=== PATIENT | female | born 1960 | race Caucasian/White ===

== ENCOUNTER 2016-10-16 11:26 | Observation (INO) | payer SELFPAY ==
[2016-10-16] MEDS ORDERED: Aspirin Low Dose CHEW TAB* 81 MG PO ONE (11:59)
[2016-10-16 12:22] LABS: Hematocrit 47 % (35-47); Hemoglobin 16.2 g/dl (12.0-16.0); Mean Corpuscular HGB Conc 34 g/dl (31-36); Mean Corpuscular Hemoglobin 34 pg (27-31); Mean Corpuscular Volume 100 fL (80-97); Mean Platelet Volume 10 um3 (7.4-10.4); Red Blood Count 4.71 10^6/ul (4.0-5.4); Red Cell Distribution Width 13 % (10.5-15); White Blood Count 4.6 10^3/ul (3.5-10.8)
[2016-10-16 12:26] LABS: Add Diff/Slide Review? Slide Review Added; Comments Flag Yes
--- NOTE | 2016-10-16 12:27 | RAD ---
HISTORY: Chest pain COMPARISONS: June 15, 2011 VIEWS:1: Single frontal portable view of the chest at 12:07 PM FINDINGS: LINES AND TUBES: None. CARDIOMEDIASTINAL SILHOUETTE: The cardiomediastinal silhouette is normal for portable technique. PLEURA: The costophrenic angles are sharp. No pleural abnormalities are noted. LUNG PARENCHYMA: There is a calcified granuloma of the right lower lobe. ABDOMEN: The upper abdomen is clear. There is no subphrenic gas. BONES AND SOFT TISSUES: No bone or soft tissue abnormalities are noted. IMPRESSION: NO ACTIVE CARDIOPULMONARY DISEASE.
[2016-10-16 12:42] LABS: Troponin I 0.01 ng/mL (<0.04)
[2016-10-16 12:53] LABS: Calcium 10.1 mg/dL (8.6-10.3); EGFR African American 149.1 (>60); Globulin 2.7 g/dL (2-4); Total Bilirubin 1.2 mg/dL (0.2-1.0); Total Protein 7.7 g/dL (6.4-8.9)
--- NOTE | 2016-10-16 13:11 | ED ---
Linnea Villanueva Edward, scribed for Donal Flores MD on 10/16/16 at 1151 . HPI Chest Pain - HPI Summary HPI Summary: 56y/o female BIBA s/p syncopal episode at 10:30 this morning while at work, c/o constant CP in the mid sternal region described as a heaviness and tightness, starting yesterday. The pain is aggravated with coughs and deep breaths. It is rated at a 3/10 in severity currently. Associated sx: mild SOB, chronic nonproductive cough, mild pain and swelling in legs. Denies fevers and chills. Pt is a smoker. PMHx HTN, previous CT around 5 years ago. SHx stent. Pt states this feels like a previous CT. Pt has a history of syncope. Pt's last stress test was 2 years ago. FHx unknown. - History of Current Complaint Chief Complaint: EDChestPainROMI Hx Obtained From: Patient Onset/Duration: Started Days Ago - Yesterday Timing: Constant Current Severity: Mild Pain Intensity: 3 Pain Scale Used: 0-10 Numeric Chest Pain Location: Mid Sternal Character: Heaviness, Tightness Aggravating Factor(s): Deep Breaths, Other: - Cough Associated Signs and Symptoms: Positive: Chest Pain, Shortness of Breath, Cough , Nonproductive Cough, Calf Pain/Swelling, Other: - Syncopal episode. Negative : Fever, Chills - Allergy/Home Medications Allergies/Adverse Reactions: Allergies Allergy/AdvReac Type Severity Reaction Status Date / Time No Known Allergies Allergy Verified 05/29/13 14:09 PMH/Surg Hx/FS Hx/Imm Hx Previously Healthy: No Endocrine/Hematology History: Denies: Hx Diabetes, Hx Thyroid Disease Cardiovascular History: Denies: Hx Hypertension Respiratory History: Denies: Hx Asthma, Hx Chronic Obstructive Pulmonary Disease (COPD) GI History: Denies: Hx Ulcer - Surgical History Surgery Procedure, Year, and Place: 2011 stent placement - cardiac Infectious Disease History: Yes Infectious Disease History: Denies: Hx Clostridium Difficile, Hx Hepatitis, Hx Human Immunodeficiency Virus (HIV), Hx of Known/Suspected MRSA, Hx Shingles, Hx Tuberculosis, Hx Known/ Suspected VRE, Hx Known/Suspected VRSA, History Other Infectious Disease, Traveled Outside the [place] in Last 30 Days - Family History Known Family History: Positive: Diabetes - Social History Alcohol Use: Occasionally Hx Substance Use: No Substance Use Type: Reports: None Amount Used/How Often: 1/2 PPD Length of Time of Smoking/Using Tobacco: 30+ years Have You Smoked in the Last Year: Yes Review of Systems Constitutional: Negative Eyes: Negative ENT: Negative Positive: Chest Pain Positive: Shortness Of Breath, Cough Gastrointestinal: Negative Genitourinary: Negative Musculoskeletal: Other - Calf pain/swelling Skin: Negative Positive: Syncope Psychological: Normal All Other Systems Reviewed And Are Negative: Yes Physical Exam Vital Signs On Initial Exam: Initial Vitals Temp Pulse Resp BP Pulse Ox 97.7 F 87 20 171/95 98 10/16/16 11:33 10/16/16 11:33 10/16/16 11:33 10/16/16 11:33 10/16/16 11:33 Diagnostics - Vital Signs Vital Signs Temp Pulse Resp BP Pulse Ox 10/16/16 11:33 97.7 F 87 20 171/95 98 - Laboratory Lab Results: Lab Results 10/16/16 10/16/16 10/16/16 Range/Units 11:43 11:43 11:43 WBC 4.6 (3.5-10.8) 10^3/ul RBC 4.71 (4.0-5.4) 10^6/ul Hgb 16.2 H (12.0-16.0) g/dl Hct 47 (35-47) % MCV 100 H (80-97) fL MCH 34 H (27-31) pg MCHC 34 (31-36) g/dl RDW 13 (10.5-15) % Plt Count 167 (150-450) 10^3/ul MPV 10 (7.4-10.4) um3 Neut % (Auto) 67.2 (38-83) % Lymph % (Auto) 25.4 (25-47) % [place] % (Auto) 6.1 (1-9) % Eos % (Auto) 0.4 (0-6) % Baso % (Auto) 0.9 (0-2) % Absolute Neuts (auto) 3.1 (1.5-7.7) 10^3/ul Absolute Lymphs (auto) 1.2 (1.0-4.8) 10^3/ul Absolute Monos (auto) 0.3 (0-0.8) 10^3/ul Absolute Eos (auto) 0 (0-0.6) 10^3/ul Absolute Basos (auto) 0 (0-0.2) 10^3/ul Absolute Nucleated RBC 0 10^3/ul Nucleated RBC % 0.1 INR (Anticoag Therapy) 0.82 L (0.89-1.11) APTT 31.4 (26.0-36.3) seconds D-Dimer, Quantitative 469 H (Less Than 230) ng/mL Sodium 130 L (133-145) mmol/L Potassium 4.0 (3.5-5.0) mmol/L Chloride 95 L (101-111) mmol/L Carbon Dioxide 26 (22-32) mmol/L Anion Gap 9 (2-11) mmol/L BUN 7 (6-24) mg/dL Creatinine 0.54 (0.51-0.95) mg/dL Est GFR ( Amer) 149.1 (>60) Est GFR (Non-Af Amer) 116.0 (>60) BUN/Creatinine Ratio 13.0 (8-20) Glucose 110 H (70-100) mg/dL Calcium 10.1 (8.6-10.3) mg/dL Magnesium 2.0 (1.9-2.7) mg/dL Total Bilirubin 1.20 H (0.2-1.0) mg/dL AST 87 H (13-39) U/L ALT 91 H (7-52) U/L Alkaline Phosphatase 49 (34-104) U/L Troponin I 0.01 (<0.04) ng/mL Total Protein 7.7 (6.4-8.9) g/dL Albumin 5.0 (3.2-5.2) g/dL Globulin 2.7 (2-4) g/dL Albumin/Globulin Ratio 1.9 (1-3) Result Diagrams: 10/16/16 11:43 10/16/16 11:43 Lab Statement: Any lab studies that have been ordered have been reviewed, and results considered in the medical decision making process. - Radiology CXR Xray Interpretation: No Acute Changes - NAD Radiology Interpretation Completed By: Radiologist - EKG 1 EKG Rhythm: Sinus Rhythm - @ 81 BPM. EKG Interpretation: 11:38 - NO STEMI Chest Pain Course/Dx - Course Course Of Treatment: 56 yr old female with prior history of CAD and stents with chest pain, syncope, and pleuritic component to CP. CTA ordered. Discussed with hospitalists for admission. - Diagnoses Provider Diagnoses: Chest pain, Syncope Discharge - Discharge Plan Condition: Good Disposition: ADMITTED TO [facility] documentation as recorded by the Linnea price Edward accurately reflects the service I personally performed and the decisions made by Sandra hanson Walter, MD.
[2016-10-16] MEDS ORDERED: Iohexol 350* (CONTRAST) 500 ML MDV IV ONE (13:18)
--- NOTE | 2016-10-16 14:12 | RAD ---
INDICATION: Chest pain. Short of breath. Evaluate for pulmonary embolus. COMPARISON: Chest x-ray 2016 TECHNIQUE: Axial source images were obtained from the thoracic inlet to the hemidiaphragms following administration of [address] angiographic technique was utilized. Coronal and sagittal reconstructed images were acquired. CHEST FINDINGS: Neck/thyroid: The visualized neck to include the thyroid appear normal. Chest wall: There are no acute abnormalities of the bony thorax or chest wall. There is no supraclavicular, infraclavicular, or axillary lymphadenopathy. Lungs : There is calcified granuloma in the right lung base There are no other pulmonary parenchymal masses. There are no infiltrates. The pulmonary interstitium appears normal. There are no endobronchial lesions. Cardiomediastinal structures: There is no CT evidence of acute pulmonary embolic disease. The heart is normal in size. There is no pericardial effusion. There is no evidence of aortic aneurysm or dissection. There is no mediastinal or hilar adenopathy. There is apparent mild, diffuse thickening of the esophagus. Consider upper endoscopy if this is a clinical consideration. Pleura : There are no pleural-based masses or effusions. Other: None. IMPRESSION: No CT evidence of acute pulmonary embolic disease. Possible mild mucosal thickening of the esophagus could be related to esophagitis (see above)
[2016-10-16] MEDS ORDERED: Acetaminophen TAB* 325 MG PO PRN (14:36)
[2016-10-16] MEDS ORDERED: Nitroglycerin TAB 0.4 MG* 0.4 MG TAB SL PRN (14:36)
[2016-10-16] MEDS ORDERED: Mouth Piece, Nicotine* 1 EACH CARTRIDGE INH PRN (14:38)
[2016-10-16] MEDS ORDERED: Nicotine Inhaler* 10 MG AMP INH PRN (14:38)
[2016-10-16] MEDS ORDERED: Morphine INJ* 2 MG/ML 1 ML SYRINGE IV PRN (14:39)
[2016-10-16] MEDS ORDERED: Heparin DRIP 25,000 UNITS(*) 25,000 UNITS/500 ML BAG IVPB SCH (14:45)
[2016-10-16] MEDS ORDERED: Heparin VIAL(*) 5000 UNITS/ML VIAL (FIVE THOUSAND) IV SCH (15:00)
--- NOTE | 2016-10-16 15:52 | ECHO ---
Patient: FESTUS CLAROS [facility] Rec#: [id number] : 1960 Date: 10/16/2016 Age: 56y Height: 152.4 cm / 60.0 in Weight: 40.82 kg / 90.0 lbs Sex: F BSA: 1.33 Room#: ED 15 Admit Date#: 10/16/2016 Type: Inpatient Referring: Sheryl Gaming MD Reading: Sidney Alcocer MD Instruction Librarian: Rhiannon CanRDCS,RDMS Transthoracic Echocardiogram Indication: CP, Syncope BP: 171/95 HR: 78 Rhythm: NSR Findings History: CAD, [place], PCI, HTN, smoker, syncope Technical Comments: The study quality is good. Completed 1530 Left Ventricle: The left ventricular chamber size is decreased. Mild to moderate concentric left ventricular hypertrophy is observed. There is a prominent septal knuckle. Global left ventricular wall motion and contractility are within normal limits. The left ventricle appears hyperdynamic. The estimated ejection fraction is greater than 65%. Abnormal left ventricular diastolic filling is observed, consistent with impaired relaxation. Left Atrium: The left atrial chamber size is normal. Right Ventricle: The right ventricle wall thickness is moderately increased. The right ventricular cavity size is normal. The right ventricular global systolic function is hyperdynamic. Right Atrium: The right atrial cavity size is normal. Aortic Valve: The aortic valve is trileaflet. The aortic valve leaflets are mildly thickened. There is no evidence of aortic regurgitation. There is no evidence of aortic stenosis. Mitral Valve: The mitral valve leaflets are mildly thickened. There is no evidence of mitral regurgitation. There is no evidence of mitral stenosis. Tricuspid Valve: The tricuspid valve leaflets are normal. There is trace tricuspid regurgitation. Unable to estimate the right ventricular systolic pressure. Pulmonic Valve: The pulmonic valve structure is not well visualized. Pericardium: There is no significant pericardial effusion. Aorta: The aortic root appears normal. There is no dilatation of the aortic arch. Pulmonary Artery: The main pulmonary artery is not well visualized. Venous: The inferior vena cava appears normal in size. There is a greater than 50% respiratory change in the inferior vena cava dimension. Summary: There are no significant changes when compared to the previous study done on 06/16/11 Conclusions Mild to moderate concentric left ventricular hypertrophy is observed. There is a prominent septal knuckle. Global left ventricular wall motion and contractility are within normal limits. The estimated ejection fraction is greater than 65%. The right ventricular global systolic function is hyperdynamic. There is no evidence of aortic stenosis. There is no evidence of mitral regurgitation. There is trace tricuspid regurgitation. Unable to estimate the right ventricular systolic pressure. There is no significant pericardial effusion. There are no significant changes when compared to the previous study done on 06/16/11 Measurements Name Value Normal Range RVIDd (AP) 2D 1.9 cm (0.9 - 2.6) RVDdMajor (2D) 2.2 cm (2.2 - 4.4) RAd ISD 4CH 3.9 cm (3.4 - 4.9) RA (A4C)W 3.7 cm (2.9 - 4.6) IVSd (2D) 1.5 cm (0.6 - 1) LVPWd (2D) 1.3 cm (0.6 - 1) LVIDd (2D) 3 cm (3.6 - 5.4) LVIDs (2D) 1.4 cm - LV FS (2D) 53 % (25 - 45) Aortic Annulus 2.1 cm (1.4 - 2.6) Ao root diameter (2D) 2.9 cm (2.1 - 3.5) Ascending Ao 2.2 cm (2.1 - 3.4) Aortic arch 2.2 cm (1.8 - 3.4) LA dimension (AP) 2D 2.6 cm (2.3 - 3.8) LAd ISD 4CH 4.9 cm (2.9 - 5.3) LA ISD 4CH W 3.9 cm (2.5 - 4.5) Name Value Normal Range LA ESV SP 4CH (A/L) 34.65 ml - LA ESV SP 2CH (A/L) 38.1 ml - LA ESV BP (A/L) 37.11 ml - LA ESV BP (A/L) index 28 ml/m2 - LA ESV SP 4CH (MOD) 33.01 ml - LA ESV SP 2CH (MOD) 36.45 ml - Name Value Normal Range MV E-wave Vmax 0.7 m/sec - MV deceleration time 198.5 msec - MV A-wave Vmax 1.1 m/sec - MV E:A ratio 0.6 ratio - P. vein S-wave Vmax 0.5 m/sec - P. vein D-wave Vmax 0.4 m/sec - P. vein S:D Vmax ratio 1.2 ratio - P. vein A-wave duration 90 msec - LV septal e' Vmax 0.05 m/sec - LV lateral e' Vmax 0.07 m/sec - LV E:e' septal ratio 13.5 ratio - LV E:e' lateral ratio 10 ratio - Name Value Normal Range AV Vmax 1.3 m/sec - AV VTI 25.7 cm - AV peak gradient 7 mmHg - AV mean gradient 4.2 mmHg - LVOT Vmax 1.2 m/sec - LVOT VTI 26.9 cm - LVOT peak gradient 6 mmHg - LVOT mean gradient 3.5 mmHg - JONA Vmax 0.7 m/sec - Name Value Normal Range RAP 8 mmHg - IVC diameter 1.1 cm - Name Value Normal Range PV Vmax 0.8 m/sec - PV peak gradient 2.6 mmHg -
--- NOTE | 2016-10-16 16:56 | HP ---
CC: Dr. Womack * HISTORY AND PHYSICAL: DATE OF ADMISSION: 10/16/16 TIME OF EVALUATION: 1:45 p.m. PRIMARY CARE PROVIDER: Dr. Womack. CHIEF COMPLAINT: "I passed out." HISTORY OF PRESENT ILLNESS: Ms. Bush is a 56-year-old lady with a past medical history of coronary artery disease, status post stent, tobacco abuse that presents to the emergency room with complaints of chest pain. The patient states she was in her usual state of health until yesterday morning when she started to have left-sided chest pain that she describes as a pressure , nonradiating, initially 3/10 in intensity, not associated with diaphoresis, shortness of breath, or palpitations. She could reproduce the pain with palpation of the left chest wall. 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 By the time she returned home, the pain was 5/10. She states that there are no alleviating or provoking factors for her pain. The pain did not stop, she took no medications, but she was able to sleep. This morning, she woke up, the pain was still present, she went to work. She states that she was feeling sick to her stomach while she was working and she went to tell her boss that she was feeling sick, the next thing she remembers is being on the floor and people helping her to get up. She states that she felt a little dizzy before passing out. The patient states she has stopped taking her medications for the past 6 months as she has no insurance and could not afford her medications any more. She denies any trauma. She states that she does not do any physical labor on her job, "I usually ask the young ones to do for me." There is no fever, chills , cough, shortness of breath, or other complaints. PAST MEDICAL HISTORY: 1. Coronary artery disease. The patient had a heart cath in March 2011 that showed 95% stenosis of the RCA and she had a drug-eluting stent placed. At that time, she was discharged home on aspirin, Plavix, beta-jennifer, statins. She returned in May 2011 with complaints of chest pain. At that time, she was also not taking her medications but in-stent stenosis was ruled out. 2. Tobacco abuse. MEDICATION LIST: None. ALLERGIES: No known drug allergies. FAMILY HISTORY: There is diabetes on the patient's mother side. SOCIAL HISTORY: The patient is a smoker since she was 15, a pack per day. She drinks 3 to 4 times a week. Last drink was 3 days ago, she had 4 beers. Surrogate decision maker is her daughter, Sara Seals, phone number is [phone]. REVIEW OF SYSTEMS: A 14-point review of systems was performed, and all the pertinent negative and positive findings are in the HPI. PHYSICAL EXAMINATION GENERAL: The patient is a pleasant lady that appears older than stated age, sitting up in ER stretcher, in no acute distress. VITAL SIGNS: Temperature 97.7, heart rate is 87, respiratory rate is 20, oxygen saturation is 98% on room air, blood pressure is 171/95. HEENT: Pupils are equal. Moist mucous membranes. CHEST: Breath sounds present bilaterally with no added sounds. She has pain on palpation of the lateral aspect of her left chest wall. CVS: Normal S1, S2. Regular rate and rhythm. ABDOMEN: Soft, nontender. Bowel sounds are present. EXTREMITIES: No edema. NEUROLOGIC: She is alert, oriented x3. Able to move all 4 extremities. LABORATORY AND IMAGING DATA: The patient had a CBC that showed a WBC of 4.6, hemoglobin of 16.2, hematocrit of 47, and platelets of 167. INR is 0.82. D- dimer was 469. Chemistry showed a sodium of 130, potassium 4.0, chloride of 95 , bicarb of 26, BUN of 7, creatinine of 0.54, and glucose of 110. Calcium of 10.1. Magnesium of 2. LFTs showed a total bilirubin of 1.2, AST of 87, ALT of 91. Chest x-ray showed no active cardiopulmonary disease. CTA of the chest showed no CT evidence of acute pulmonary embolic disease. Possible mild mucosal thickening of the esophagus that could be related to esophagitis. EKG showed sinus rhythm at 81 beats per minute. The patient has a Q wave in V1. She has very tall T waves in the anterior leads but no ST elevations or depressions. When compared to her prior EKG from 2012, the T waves are more pronounced now. ASSESSMENT AND PLAN: Ms. Bush is a 56-year-old lady with a past medical history of coronary artery disease, status post stent to the RCA, tobacco abuse , noncompliance that presents to the emergency room with complaints of chest pain and a syncopal episode today. 1. Chest pain, rule acute coronary syndrome. Although the patient's chest pain is reproducible with chest palpation, she does have a history of coronary artery disease and she has not been taking her medications for the past 6 months. I am especially concerned with her syncopal episode that could be associated with an arrhythmia. She would be admitted as an observation to telemetry floor. I am going to resume medications including aspirin, metoprolol, statin. For now, she is going to be on heparin drip and we are going to trend her troponins. If she is ruled out, the plan is for exercise Myoview stress test tomorrow. If she rules in, then we will get cardiology consultation. I am also going to check an echocardiogram to assess her left ventricle function. A school social worker consultation was requested to help the patient with insurance/ medication. 2. Elevated LFTs. Suspect this is likely secondary to alcohol intake. We will check hepatitis serology and a right upper quadrant ultrasound. The patient was advised to avoid alcoholic beverages. 3. Tobacco abuse. The patient was advised that she needs to quit. She states that she is aware, but it has been very difficult. She will receive nicotine supplementation while in the hospital. 4. DVT prophylaxis. The patient has a score of 2 on the DVT Prophylaxis Risk Assessment Guide and she was already started on a heparin drip. TIME SPENT: Approximately 60 minutes was spent with the patient's interview, medical records review, physical examination to complete this admission; more than half of this time was spent [id number] with the patient and coordination of care. [id number]/[facility] #: [id number] MAGALY
[2016-10-16] MEDS: Nicotine PATCH 21 MG/24 HR* PATCH TRANSDERM SCH (17:10)
[2016-10-16] MEDS: Metoprolol Succinate XL TAB* 25 MG PO SCH (17:10)
--- NOTE | 2016-10-16 17:41 | RAD ---
INDICATION: Elevated liver function tests. COMPARISON: There are no prior studies available for comparison. TECHNIQUE: Multiple real-time images of the right upper quadrant were obtained. FINDINGS: The gallbladder appear normal. No gallbladder wall thickening or pericholecystic fluid is present. No intra or extrahepatic ductal distention is present. The common bile duct measured 0.3 cm in diameter. The liver is normal in size and increased in echogenicity. No significant focal abnormality is seen. The pancreas is partially obscured by overlying bowel gas. The right kidney is normal in size without evidence for hydronephrosis. IMPRESSION: THE LIVER IS INCREASED IN ECHOGENICITY SUGGESTIVE OF FATTY INFILTRATION.
[2016-10-16] MEDS ORDERED: Atorvastatin* 40 MG TAB PO SCH (21:00)
[2016-10-16] MEDS ORDERED: Nicotine Patch Removal NOTE FOLLOW UP SCH (21:00)
[2016-10-17 03:48] VITALS: BP 144/83
[2016-10-17 05:02] LABS: BUN/Creatinine Ratio 22.4 (8-20); Calcium 9.6 mg/dL (8.6-10.3); EGFR African American 137.3 (>60); EGFR Non-African American 106.8 (>60); HDL Cholesterol 77.5 mg/dL; Potassium 3.9 mmol/L (3.5-5.0)
[2016-10-17 05:16] LABS: Add Diff/Slide Review? Slide Review Added; Comments Flag Yes; Hematocrit 44 % (35-47); Hemoglobin 14.8 g/dl (12.0-16.0); Mean Corpuscular HGB Conc 34 g/dl (31-36); Mean Corpuscular Hemoglobin 34 pg (27-31); Mean Corpuscular Volume 101 fL (80-97); Mean Platelet Volume 10 um3 (7.4-10.4); Red Blood Count 4.35 10^6/ul (4.0-5.4); Red Cell Distribution Width 13 % (10.5-15); White Blood Count 5.2 10^3/ul (3.5-10.8)
[2016-10-17] MEDS ORDERED: Aspirin EC Low Dose* 81 MG TAB.EC PO SCH (09:00)
--- NOTE | 2016-10-17 10:14 | RAD ---
Edited for charges. INDICATION: Chest pain. Tobacco use. Abnormal EKG. COMPARISON: No relevant prior exams available on the [facility] PACS for comparison. TECHNIQUE: 10.830 mCi of Tc-99m Myoview were administered IV. SPECT images of the heart were obtained. Later on the same day. Under the direction of Dr. Alcocer, an exercise stress test was performed. The patient achieved a peak heart rate of 123 bpm, 76 % of the age- predicted maximum. Heart rate noted to be blunted due to pharmacotherapy. Subsequently, the patient was given an IV injection of 25.100 mCi Tc-99m Myoview. SPECT images of the heart were obtained and a gated wall motion study was performed. FINDINGS: Gated wall motion images were obtained at stress and demonstrate wall motion to be within normal limits. The calculated left ventricular ejection fraction is 82 % at stress. Estimated LEFT ventricular end diastolic volume is 45 mL. TID 1.04. Based on review of the attenuation corrected and non corrected images the distribution of radiopharmaceutical within the myocardium on the stress and rest images is within normal limits. No fixed or reversible regions of hypoperfusion evident. IMPRESSION: 1. No evidence for stress induced myocardial ischemia or presence of an infarct. 2. Normal left ventricular wall motion and ejection fraction. ASSESSMENT: LOW RISK. Based on imaging criteria from ACC/AHA 2002 Guideline Update for the Management of Patients With Chronic Stable Angina Table 23. Noninvasive Risk Stratification. MTDD
[2016-10-17] MEDS: Metoprolol Succinate XL TAB* 25 MG PO SCH (10:49)
[2016-10-17] MEDS: Nicotine PATCH 21 MG/24 HR* PATCH TRANSDERM SCH (10:51)
--- NOTE | 2016-10-17 22:06 | DS ---
CC: Dr. Womack* DISCHARGE SUMMARY: DATE OF ADMISSION: 10/16/16 DATE OF DISCHARGE: 10/17/16 PRIMARY CARE PROVIDER: Dr. Womack. DISCHARGE DIAGNOSES: 1. Atypical chest pain, acute coronary syndrome ruled out, likely musculoskeletal in nature. 2. Syncopal episode, likely secondary to dehydration. SECONDARY DIAGNOSES: 1. Coronary artery disease, status post stent to the RCA in 2011. 2. Tobacco abuse. MEDICATION LIST: All of his medications are new. 1. Acetaminophen 650 mg p.o. q.6 hours p.r.n. pain or fever. 2. Aspirin 81 mg p.o. daily. 3. Atorvastatin 40 mg p.o. at bedtime. 4. Metoprolol succinate 25 mg p.o. daily. 5. Nicotine patch 21 mg topical daily, remove at bedtime. 6. Nitroglycerin 0.4 mg sublingual q.5 minutes p.r.n. chest pain. HOSPITAL COURSE: Ms. Bush is a 56-year-old lady with a past medical history as stated above that presented to the emergency room on 10/17/16 with complaints of chest pain and a syncopal episode. The pain was described as a left-sided chest pressure that was reproducible with palpation of the left chest wall, but considering her significant coronary artery disease history and the fact that she was not on any medications for the past 6 months, the patient was admitted for further evaluation. Her EKG showed no new ischemic changes. Serial troponins were negative. The patient underwent an exercise Myoview stress test that showed no evidence for stress-induced myocardial ischemia or presence of an infarct. There was normal left ventricular wall motion and ejection fraction. The patient had a syncopal episode and while on telemetry, she had no significant arrhythmias. A transthoracic echocardiogram showed mild-to- moderate concentric LVH, with a prominent septal knuckle. Global left ventricular wall motion and contractility are within normal limits and the estimated ejection fraction is greater than 65%. There was no significant valvular disease and when compared to her prior study from May 2011, there were no significant changes. The patient had resolution of her symptoms and as stated above, her chest pain was reproducible with palpation suggestive of a musculoskeletal etiology. The patient was advised that although her stress test was normal, she needs to continue management of her coronary artery disease. She was seen by child welfare social worker and arrangements were made so the patient can get those medications from the [employer] dollar list at [facility]. The patient was strongly encouraged to quit smoking. She received information about [place] [facility], so she can have access to her nicotine patch. The patient was also found to have mild elevation of her LFTs on admission. An abdomen ultrasound showed increased hepatic echogenicity suggestive of fatty infiltration. The patient is started on a statin now, so her primary care provider will need to monitor her LFTs and CPK, and the patient was also advised to avoid alcohol. She is medically stable to be discharged home at this time. PHYSICAL EXAMINATION: Vital Signs: Temperature 98.3, heart rate is 72, respiratory rate is 18, oxygen saturation is 98% on room air, blood pressure is 144/83. General: The patient is a pleasant lady sitting up in bed, in no acute distress. CVS: Normal S1 and S2. Regular rate and rhythm. Chest: Breath sounds present bilaterally with no added sounds. Abdomen is soft, bowel sounds are present. Extremities: No edema. Neurologic: She is alert and oriented x3. Able to move all 4 extremities. DIET: Heart-healthy diet, avoid caffeine. ACTIVITY: As tolerated. DISPOSITION: To home. STATUS WHILE IN THE HOSPITAL: Observation. Please keep in mind, this is a summarized version of this patient's hospital stay. If you need more information, please feel free to call me at [phone] or please obtain the full medical records. This case was discussed with her prior lockmaker with whom the patient had lost followup (Dr. Alcocer). He performed her stress test and is willing to follow up with her as outpatient again. The patient is advised to schedule an appointment to see him in a month. [id number]/[facility] #: [id number] [facility]ITAL[facility]
--- NOTE | 2016-10-20 19:46 | ED ---
Linnea Villanueva Edward, scribed for Donal Flores MD on 10/16/16 at 1418 . Progress - Results/Orders Results/Orders: CHEST/THORAX CTA - No CT evidence of acute pulmonary embolic disease. Possible mild mucosal thickening of the esophagus could be related to esophagitis (see above) Course/Dx - Course Course Of Treatment: 56 yr old female with prior history of CAD and stents with chest pain, syncope, and pleuritic component to CP. CTA ordered. Discussed with hospitalists for admission. - Diagnoses Provider Diagnoses: Chest pain, Syncope The documentation as recorded by the Linnea price Edward accurately reflects the service I personally performed and the decisions made by Sandra hanson Walter, MD.
== END 2016-10-17 12:00 | disposition home or self-care (01) ==
LOC: ED 11:26 → MEDTELE 14:28
PROVIDERS: ADMIT Internal Medicine; ATTEND Internal Medicine
DX: R07.89 Other chest pain (principal); R55 Syncope and collapse; E86.0 Dehydration; R79.89 Other specified abnormal findings of blood chemistry; R06.02 Shortness of breath; K76.0 Fatty (change of) liver, not elsewhere classified; I51.7 Cardiomegaly; R94.31 Abnormal electrocardiogram [ECG] [EKG]; R94.5 Abnormal results of liver function studies; I25.10 Atherosclerotic heart disease of native coronary artery without angina pectoris; F17.210 Nicotine dependence, cigarettes, uncomplicated; Z79.82 Long term (current) use of aspirin; Z95.5 Presence of coronary angioplasty implant and graft
CPT/HCPCS: 36415; 71010; 71275; 76705; 78452; 80048; 80053; 80061; 80074; 83735; 84484; 85025; 85379; 85610; 85730; 93005; 93017; 93306; 96374; 99284; 99406; A9270-GY; A9502; G0378; J1644; Q9967

== ENCOUNTER 2018-09-11 11:25 | Emergency (ER) | payer OTHER ==
[2018-09-11 13:49] VITALS: BP 154/90
--- NOTE | 2018-09-11 14:17 | UC ---
Skin Complaint HPI - HPI Summary HPI Summary: PATIENT HAS HAD AN ITCHY RASH OVER HER WHOLE BODY FOR ABOUT 4 WEEKS. NOT PAINFUL. NO FEVER. NO NAUSEA. PATIENT DENIES ANY NEW ENVIRONMENTAL EXPOSURES OR MEDICATIONS. HAS BEEN SEEING A VOUCHER CLERK AT [place]. STATES SHE WAS SENT HERE TO THE BY HER EMPLOYER TO CONFIRM HER RASH IS NOT CONTAGIOUS. - History of Current Complaint Chief Complaint: [facility] Time Seen by Provider: 09/11/18 14:02 Stated Complaint: RASH Hx Obtained From: Patient Onset/Duration: Gradual Onset, Lasting Weeks, Still Present Timing: Constant Onset Severity: Moderate Current Severity: Moderate Pain Intensity: 0 Pain Scale Used: 0-10 Numeric Location: Diffuse Character: Pruritus, Redness Aggravating Factor(s): Nothing Alleviating Factor(s): Nothing Associated Signs & Symptoms: Positive: Rash - Allergy/Home Medications Allergies/Adverse Reactions: Allergies Allergy/AdvReac Type Severity Reaction Status Date / Time No Known Allergies Allergy Verified 09/11/18 13:49 PMH/Surg Hx/FS Hx/Imm Hx Cardiovascular History: Cardiac Disease - STENT - Surgical History Surgical History: Yes Surgery Procedure, Year, and Place: 2011 stent placement - cardiac - Family History Known Family History: Positive: Diabetes - Social History Alcohol Use: Occasionally Substance Use Type: None Smoking Status (MU): Heavy Every Day Tobacco Smoker Type: Cigarettes Amount Used/How Often: 3/4 PPD Length of Time of Smoking/Using Tobacco: 30+ years Have You Smoked in the Last Year: Yes Household Exposure Type: Cigarettes Review of Systems All Other Systems Reviewed And Are Negative: Yes Constitutional: Positive: Negative Skin: Positive: Rash Respiratory: Positive: Negative Cardiovascular: Positive: Negative Gastrointestinal: Positive: Negative Musculoskeletal: Positive: Negative Physical Exam Triage Information Reviewed: Yes Appearance: Well-Appearing, No Pain Distress, Well-Nourished Vital Signs: Initial Vital Signs Temp 99.5 F 09/11/18 13:46 Pulse 104 09/11/18 13:46 Resp 18 09/11/18 13:46 BP 154/90 09/11/18 13:46 Pulse Ox 100 09/11/18 13:46 Vital Signs Reviewed: Yes Eyes: Positive: Conjunctiva Clear ENT: Positive: Hearing grossly normal Neck: Positive: Supple Respiratory: Positive: No respiratory distress, No accessory muscle use Cardiovascular: Positive: Pulses Normal Abdomen Description: Positive: Soft Musculoskeletal: Positive: No Edema Neurological: Positive: Alert Psychological: Positive: Age Appropriate Behavior Skin: Positive: Rashes - DIFFUSE MACULOPAPULAR RASH OVER BODY AND FACE. NO EXCORIATION. NO VESICLES. Course/Dx - Course Course Of Treatment: PATIENT'S RASH LOOKS ALLERGIC. UNCLEAR WHAT SHE IS REACTING TO. ADVISED HER TO FOLLOW-UP WITH AN [employer]ILS DEVELOPER FOR EVALUATION. I HAVE ALSO ENCOURAGED HER TO CONTINUE SEEING HER VOUCHER CLERK. CLINICALLY THIS DOES NOT APPEAR TO BE A CONTAGIOUS OR INFECTIOUS RASH. - Diagnoses Provider Diagnosis: Allergic dermatitis Discharge - Sign-Out/Discharge Documenting (check all that apply): Patient Departure All imaging exams completed and their final reports reviewed: No Studies - Discharge Plan Condition: Stable Disposition: HOME Prescriptions: predniSONE TAB* [Deltasone 20 MG TAB*] 40 mg PO DAILY #10 tab Patient Education Materials: Contact Dermatitis (ED) Forms: *Gen. Provider Communication Referrals: Eileen Aj MD [Primary Care Provider] - If Needed Additional Instructions: USE DAILY HYPOALLERGENIC MOISTURIZING LOTION TAKE PREDNISONE DAILY PRESCRIBED AVOID HEAT AND HOT WATER TAKE OTC ANTIHISTAMINE DAILY (CLARITIN (LORATADINE), ZYRTEC (CETIRIZINE) OR NOEL (FEXOFENADINE) IN THE MORNING, 25-50MG BENADRYL AT NIGHT) DO NOT SCRATCH KEEP COOL, CLEAN AND DRY GO TO THE ED WITHOUT FAIL IF YOU DEVELOP ANY RESPIRATORY INVOLVEMENT, TONGUE/ LIP SWELLING, FEVER, NAUSEA/VOMITING OR ANY OTHER CONCERNING SYMPTOMS. CONSIDER EVAL BY AN RUBY RAILS DEVELOPER. [facility] Address: [address] , [place] [address] [facility] [address] [place], [place] [address] SEE PCP OR DERMATOLOGY IF NOT IMPROVING DERMATOLOGY IN [place] DR. MARII KINCAID [facility], [facility] [address]; [address] [place] [address] Dr. Nilam Tomas Address: [address] [place] [address] DR. MARYELLEN POOLE [facility] [address] [place] [address] [facility] Dr. Hawa Parker - billing Disposition and Condition Condition: STABLE Disposition: Home
== END 2018-09-11 14:15 | disposition home or self-care (01) ==
LOC: UCEAST 11:25
DX: L23.9 Allergic contact dermatitis, unspecified cause (principal); F17.210 Nicotine dependence, cigarettes, uncomplicated
CPT/HCPCS: 99212; G0463

== ENCOUNTER 2018-12-26 10:49 | Emergency (ER) | payer OTHER ==
[2018-12-26] MEDS ORDERED: HYDROcodone/ACETAMIN 5-325 MG* 1 TAB PO ONE ×2 (10:57→15:37)
--- NOTE | 2018-12-26 11:07 | ED ---
Lower Extremity - HPI Summary HPI Summary: Patient is a 58 y/o F presenting to the ED via EMS for left LE pain and swelling after stepping into a pothole on 12/24/18. Patient reports limited ROM in the left LE and continues to have pain. On triage, patient rates the pain as 10/10 in severity. Patient has been unable to walk or ambulate the left LE since the injury occurred. Patient states she has been sitting in a chair since the injury and does not have a senior medical transcriptionist. Patient reports she has not eaten in the last 2 days. Patient denies headache or fever. Patient denies any alleviating or aggravating factos. Patient has a PMHx of HTN and PR. Patient takes blood thinners, but has not refilled her prescription. Patient has a PSHx of stent placement. Patient admits tobacco use and occasional alcohol use, but denies drug use. Allergies noted. Medications reviewed - History of Current Complaint Chief Complaint: EDExtremityLower Stated Complaint: LEFT ANKLE INJURY PER EMS Time Seen by Provider: 12/26/18 10:51 Hx Obtained From: Patient Mechanism Of Injury: Twisted - On a pothole Onset of Pain: Immediate, Days - Since 12/24/18 Onset/Duration: Days - Since 12/24/18 Severity Initially: Severe Severity Currently: Severe Pain Intensity: 10 Pain Scale Used: 0-10 Numeric Timing: Constant, Lasting Days - Since 12/24/18 Associated Signs And Symptoms: Positive: Swelling - Left LE, Other - Negative MURPHY. Negative: Fever Aggravating Factor(s): Nothing Alleviating Factor(s): Nothing Able to Bear Weight: No - Allergies/Home Medications Allergies/Adverse Reactions: Allergies Allergy/AdvReac Type Severity Reaction Status Date / Time No Known Allergies Allergy Verified 09/11/18 13:49 Home Medications: Home Medications Albuterol HFA INHALER* [Ventolin HFA Inhaler*] 2 puff INH Q4H PRN 12/26/18 [ History Confirmed 12/26/18] Fluticasone Furoate ELLIPTA(NF [Arnuity ELLIPTA (NF)] 1 puff INH DAILY 12/26/18 [History Confirmed 12/26/18] Metoprolol Succinate XL TAB* [Toprol XL TAB*] 25 mg PO BID 12/26/18 [History Confirmed 12/26/18] PMH/Surg Hx/FS Hx/Imm Hx Previously Healthy: Yes Endocrine/Hematology History: Denies: Hx Diabetes, Hx Thyroid Disease Cardiovascular History: Reports: Hx Angina, Hx Hypertension, Hx Myocardial Infarction Denies: Hx Coronary Artery Disease Respiratory History: Denies: Hx Asthma, Hx Chronic Obstructive Pulmonary Disease (COPD) GI History: Denies: Hx Ulcer History: Denies: Hx Renal Disease Sensory History: Reports: Hx Contacts or Glasses Denies: Hx Legally Blind, Hx Deafness, Hx Hearing Aid Opthamlomology History: Reports: Hx Contacts or Glasses Denies: Hx Legally Blind EENT History: Denies: Hx Deafness - Surgical History Surgical History: Yes Surgery Procedure, Year, and Place: 2011 stent placement - cardiac Infectious Disease History: No Infectious Disease History: Denies: Hx Clostridium Difficile, Hx Hepatitis, Hx Human Immunodeficiency Virus (HIV), Hx of Known/Suspected MRSA, Hx Shingles, Hx Tuberculosis, Hx Known/ Suspected VRE, Hx Known/Suspected VRSA, History Other Infectious Disease, Traveled Outside the [place] in Last 30 Days - Family History Known Family History: Positive: Diabetes - Social History Occupation: Unemployed Lives: Alone Alcohol Use: Occasionally Hx Substance Use: No Substance Use Type: Reports: None Hx Tobacco Use: Yes Smoking Status (MU): Heavy Every Day Tobacco Smoker Type: Cigarettes Amount Used/How Often: 3/4 PPD Length of Time of Smoking/Using Tobacco: 30+ years Have You Smoked in the Last Year: Yes Review of Systems Negative: Fever Positive: Myalgia - Left LE, Decreased ROM - Left LE, Edema - Left LE, Other - Positive unable to ambulate or walk Negative: Headache All Other Systems Reviewed And Are Negative: Yes Physical Exam - Summary Physical Exam Summary: Constitutional: Well-developed, Well-nourished, Alert. (-) Distressed Skin: Warm, Dry HENT: Normocephalic; Atraumatic Eyes: Conjunctiva normal Neck: Musculoskeletal ROM normal neck. (-) JVD, (-) Stridor, (-) Tracheal deviation Cardio: Rhythm regular, rate normal, Heart sounds normal; Intact distal pulses; Radial pulses are 2+ and symmetric. (-) Murmur Pulmonary/Chest wall: Effort normal. (-) Respiratory distress, (-) Wheezes, (-) Rales Abd: Soft, (-) tenderness, (-) Distension, (-) Guarding, (-) Rebound Musculoskeletal: (-) Edema. Tenderness from the left mid leg to foot, PT/DP pulse 2+. Lymph: (-) Cervical adenopathy Neuro: Alert, Oriented x3 Psych: Mood and affect Normal Triage Information Reviewed: Yes Vital Signs On Initial Exam: Initial Vitals Temp Pulse Resp BP Pulse Ox 98.4 F 119 22 171/110 96 12/26/18 10:55 12/26/18 10:55 12/26/18 10:55 12/26/18 10:55 12/26/18 10:55 Vital Signs Reviewed: Yes Procedures - Sedation Patient Received Moderate/Deep Sedation with Procedure: No - Splinting Left Lower Extremity Location: Posterior left leg Hand-Made Type: orthoglass Splint: Posterior short leg Pre-Proc Neuro Vasc Exam: normal Post-Proc Neuro Vasc Exam: normal Splint Applied by Provider: Jospe Sloan [facility] - Vital Signs Vital Signs Temp Pulse Resp BP Pulse Ox 12/26/18 10:55 98.4 F 119 22 171/110 96 - Laboratory Lab Statement: Any lab studies that have been ordered have been reviewed, and results considered in the medical decision making process. - Radiology Ankle X-ray Radiology Interpretation Completed By: Radiologist Summary of Radiographic Findings: Ankle X-ray IMPRESSION: 1. BIMALLEOLAR FRACTURE. 2. OSTEOPENIA. 3. OSTEOARTHRITIS. Reviewed by ED physician. Foot X-ray Radiology Interpretation Completed By: Radiologist Summary of Radiographic Findings: Foot X-ray IMPRESSION: 1. BIMALLEOLAR FRACTURE. 2. OSTEOPENIA. 3. OSTEOARTHRITIS. Reviewed by ED physician. Lower Extremity X-ray Radiology Interpretation Completed By: Radiologist Summary of Radiographic Findings: Lower Extremity X-ray IMPRESSION: Fracture of the distal fibula and medial malleolus. Reviewed by ED physician. Lower Extremity Course/Dx - Course Course Of Treatment: Patient is here with a left ankle injury. Patient was found to have bedbugs by radiology when they went to take her for x-ray. Patient was placed on quarantine delaying her x-ray. Patient has had an x-ray which showed a bimalleolar fracture. Patient did not need reduction. Patient placed in a splint. Patient felt comfortable going home with crutches. Patient is given orthopedic surgery follow-up. - Diagnoses Provider Diagnoses: Left malleolar fracture Discharge ED - Sign-Out/Discharge Documenting (check all that apply): Patient Departure - Discharge - Discharge Plan Condition: Stable Disposition: HOME Prescriptions: HYDROcodone/ACETAMIN 5-325 MG* [[place] 5-325 TAB*] 1 tab PO Q6H PRN #20 tab MDD 4 tablets PRN Reason: Pain - Severe Patient Education Materials: Ankle Fracture (ED) Referrals: Eileen Aj MD [Primary Care Provider] - Quinton Cheney MD [Medical Doctor] - Additional Instructions: Take ibuprofen 600 mg every 6 hours. Take your prescribed pain medications if ibuprofen does not work. Return to the Emergency Department if your splint gets wet or falls off, or if you have numbness or tingling in the leg. Follow up with Dr. Cheney. Do not put any weight on your broken ankle. - Billing Disposition and Condition Condition: STABLE Disposition: Home - Attestation Statements Document Initiated by Chas: Yes Documenting Scribe: Rhiannon Ackerman Provider For Whom Chas is Documenting (Include Credential): Josep Sloan MD Scribe Attestation: Rhiannon Villanueva scribed for Josep Sloan MD on 12/26/18 at 2113. Scribe Documentation Reviewed: Yes Provider Attestation: The documentation as recorded by the Rhiannon price accurately reflects the service I personally performed and the decisions made by , Josep Sloan MD Status of Scribe Document: Viewed
[2018-12-26 20:38] VITALS: BP 146/89
== END 2018-12-26 17:45 | disposition home or self-care (01) ==
LOC: ED 10:49
DX: S82.52XA Displaced fracture of medial malleolus of left tibia, initial encounter for closed fracture (principal); S82.832A Other fracture of upper and lower end of left fibula, initial encounter for closed fracture; W17.89XA Other fall from one level to another, initial encounter; Y93.01 Activity, walking, marching and hiking; Y92.9 Unspecified place or not applicable; I10 Essential (primary) hypertension; I25.2 Old myocardial infarction; F17.210 Nicotine dependence, cigarettes, uncomplicated; Z95.5 Presence of coronary angioplasty implant and graft; Z79.01 Long term (current) use of anticoagulants; Z79.899 Other long term (current) drug therapy
CPT/HCPCS: 99284

== ENCOUNTER 2022-03-30 09:22 | Inpatient (IN) ==
[2022-03-30 11:24] LABS: ABS Eosinophils 0.1 10^3/ul (0-0.6); ABS Monocytes 0.5 10^3/ul (0-0.8); ABS Neutrophils 2.4 10^3/ul (1.5-7.7); Eosinophil % 1.5 %; Hematocrit 46 % (35-47); Hemoglobin 15.1 g/dL (12.0-16.0); Lymphocyte % 39.2 %; Mean Corpuscular HGB Conc 33 g/dL (31-36); Mean Corpuscular Hemoglobin 34 pg (27-31); Mean Corpuscular Volume 102 fL (80-97); Mean Platelet Volume 8.2 fL (7.4-10.4); Platelet Count 300 10^3/uL (150-450); Red Blood Count 4.46 10^6 /uL (3.70-4.87); Red Cell Distribution Width 14 % (10-15)
[2022-03-30 12:13] LABS: Albumin/Globulin Ratio 1.9 (1-3); Calcium 9.5 mg/dL (8.6-10.3); Creatinine, Serum 0.46 mg/dL (0.51-0.95); Globulin 2.1 g/dL (2-4); Magnesium 1.9 mg/dL (1.9-2.7); Potassium 4.1 mmol/L (3.5-5.0); Total Bilirubin 0.6 mg/dL (0.2-1.0); Total Protein 6.1 g/dL (6.4-8.9); eGFR CKD-EPI 107.5 (>60)
[2022-03-30 12:21] LABS: TSH Ultra Thyroid Stim Horm 0.94 mcIU/mL (0.34-5.60)
[2022-03-30 12:47] LABS: High Sensitivity Troponin 1 Hr 10 pg/mL (<15)
[2022-03-30] MEDS ORDERED: NS 0.9% 1000 ml BAG 1,000 ML IV ONE (13:04)
[2022-03-31] MEDS ORDERED: Albuterol HFA INHALER 8 gm MDI INH PRN (10:13)
[2022-03-31] MEDS ORDERED: Lactated Ringers 1000 ml BAG 1,000 ML IV SCH ×2 (11:00→16:00)
[2022-03-31] MEDS ORDERED: Lidocaine 1.5% EPI 1:200,000 30 ML SDV ONE (12:10)
[2022-03-31] MEDS ORDERED: Gelfoam 12-7 ADSORBABL SPONGE ONE (12:10)
[2022-03-31] MEDS ORDERED: Thrombin 5,000 UNITS 1 APPLIC KIT - topical use - TOPICAL ONE (12:10)
[2022-03-31] MEDS ORDERED: ceFAZolin VIAL VIAL ONE (12:10)
[2022-03-31] MEDS ORDERED: Gelfoam Sponge SIZE 100 SPONGE ONE (12:11)
[2022-03-31] MEDS ORDERED: Propofol 10 MG/ML 20 ML BTL ONE (12:36)
[2022-03-31] MEDS ORDERED: Lidocaine 2% PF 5 ML VIAL ONE (12:36)
[2022-03-31] MEDS ORDERED: fentaNYL 100 mcg/2 ml 50 MCG/ML VIAL ONE (12:36)
[2022-03-31] MEDS ORDERED: Rocuronium 50 mg VIAL 10 mg/ml 5 ml VIAL (50 mg) ONE (12:36)
[2022-03-31] MEDS ORDERED: ceFAZolin 2 GM in NS PREMIX 2 GM/100 ML BAG IVPB ONE (12:49)
[2022-03-31] MEDS ORDERED: Ondansetron 4 mg VIAL 2 MG/ML 2 ml VIAL ONE (12:53)
[2022-03-31] MEDS ORDERED: Dexamethasone IV 4 MG/ML VIAL 1 ml VIAL ONE (12:53)
[2022-03-31] MEDS ORDERED: Acetaminophen IV 1 GM/100ML 1,000 MG/100 ML BAG IV ONE (14:02)
[2022-03-31] MEDS ORDERED: HYDROmorphone 0.5 MG/0.5 ML SYRINGE ONE (14:40)
[2022-03-31] MEDS ORDERED: Buffered Lidocaine 1% SYRIN 1 ml INTRADERM ONE (15:56)
[2022-04-01 05:46] LABS: ABS Lymphocytes 0.9 10^3/ul (1.0-4.8); ABS Monocytes 0.4 10^3/ul (0-0.8); ABS Neutrophils 9.2 10^3/ul (1.5-7.7); Eosinophil % 0.1 %; Hematocrit 42 % (35-47); Hemoglobin 13.7 g/dL (12.0-16.0); Lymphocyte % 8.6 %; Mean Corpuscular HGB Conc 33 g/dL (31-36); Mean Corpuscular Hemoglobin 34 pg (27-31); Mean Corpuscular Volume 102 fL (80-97); Mean Platelet Volume 9.6 fL (7.4-10.4); Platelet Count 270 10^3/uL (150-450); Red Blood Count 4.05 10^6 /uL (3.70-4.87); Red Cell Distribution Width 14 % (10-15); White Blood Count 10.5 10^3/uL (3.5-10.8)
[2022-04-01 05:49] LABS: INR 0.95 (0.88-1.18)
[2022-04-01 05:57] LABS: Calcium 9.1 mg/dL (8.6-10.3); Creatinine, Serum 0.44 mg/dL (0.51-0.95); Potassium 4.5 mmol/L (3.5-5.0); eGFR CKD-EPI 108.6 (>60)
[2022-04-01] MEDS: Tiotropium Brom/Olodaterol MDI INH SCH (07:41)
[2022-04-01 08:46] LABS: Folate 6.18 ng/mL (5.90-24.80)
[2022-04-02 06:08] LABS: ABS Lymphocytes 2.1 10^3/ul (1.0-4.8); ABS Monocytes 0.6 10^3/ul (0-0.8); ABS Neutrophils 5.3 10^3/ul (1.5-7.7); Eosinophil % 0.4 %; Hematocrit 38 % (35-47); Hemoglobin 12.4 g/dL (12.0-16.0); Lymphocyte % 25.6 %; Mean Corpuscular HGB Conc 33 g/dL (31-36); Mean Corpuscular Hemoglobin 33 pg (27-31); Mean Corpuscular Volume 102 fL (80-97); Mean Platelet Volume 8.3 fL (7.4-10.4); Platelet Count 243 10^3/uL (150-450); Red Blood Count 3.72 10^6 /uL (3.70-4.87); Red Cell Distribution Width 14 % (10-15); White Blood Count 8.1 10^3/uL (3.5-10.8)
[2022-04-02 06:45] LABS: Calcium 8.9 mg/dL (8.6-10.3); Creatinine, Serum 0.41 mg/dL (0.51-0.95); eGFR CKD-EPI 110.5 (>60)
[2022-04-02] MEDS: Tiotropium Brom/Olodaterol MDI INH SCH (10:19)
[2022-04-03] MEDS: Tiotropium Brom/Olodaterol MDI INH SCH (07:08)
[2022-04-03] MEDS: HYDROcodone/ACETAMIN 5/325 mg TAB PO PRN ×3 (08:08→21:54)
[2022-04-04] MEDS: Tiotropium Brom/Olodaterol MDI INH SCH ×2 (08:26→11:06)
[2022-04-04 12:25] VITALS: BP 123/66
[2022-04-04] MEDS ORDERED: Magnesium Hydroxide LIQ 30 ML UDC PO PRN (12:46)
[2022-04-04] MEDS ORDERED: Senna TAB 8.6 mg TAB PO PRN (12:46)
[2022-04-05] MEDS ORDERED: Polyethylene Glycol 3350 17 GM PACKET PO SCH (09:00)
== END 2022-04-04 14:00 | DRG 310 ==
LOC: EDHOLD 09:22 → SSU 09:22 → ED 09:22 → SUATTDRO 04-01 11:42
PROVIDERS: ADMIT Internal Medicine; ATTEND Internal Medicine

== ENCOUNTER 2022-04-04 14:01 | Inpatient (IN) ==
[2022-04-04] MEDS ORDERED: Magnesium Hydroxide LIQ 30 ML UDC PO PRN (16:27)
[2022-04-04] MEDS ORDERED: Senna TAB 8.6 mg TAB PO PRN (16:27)
[2022-04-04] MEDS: HYDROcodone/ACETAMIN 5/325 mg TAB PO PRN (16:44)
[2022-04-05 06:47] LABS: ABS Eosinophils 0.1 10^3/ul (0-0.6); ABS Lymphocytes 1.5 10^3/ul (1.0-4.8); ABS Monocytes 0.8 10^3/ul (0-0.8); ABS Neutrophils 4.1 10^3/ul (1.5-7.7); Eosinophil % 1.6 %; Hematocrit 33 % (35-47); Hemoglobin 11.1 g/dL (12.0-16.0); Lymphocyte % 23.7 %; Mean Corpuscular HGB Conc 34 g/dL (31-36); Mean Corpuscular Hemoglobin 34 pg (27-31); Mean Corpuscular Volume 102 fL (80-97); Mean Platelet Volume 8.9 fL (7.4-10.4); Nucleated Red Blood Cells % 0.1; Platelet Count 226 10^3/uL (150-450); Red Blood Count 3.26 10^6 /uL (3.70-4.87); Red Cell Distribution Width 13 % (10-15); White Blood Count 6.5 10^3/uL (3.5-10.8)
[2022-04-05 07:23] LABS: Potassium 4.5 mmol/L (3.5-5.0)
[2022-04-05 07:24] LABS: Albumin 3.2 g/dL (3.2-5.2); Albumin/Globulin Ratio 1.5 (1-3); Calcium 8.9 mg/dL (8.6-10.3); Creatinine, Serum 0.39 mg/dL (0.51-0.95); Globulin 2.1 g/dL (2-4); Total Bilirubin 0.3 mg/dL (0.2-1.0); Total Protein 5.3 g/dL (6.4-8.9); eGFR CKD-EPI 111.8 (>60)
[2022-04-05] MEDS: Tiotropium Brom/Olodaterol MDI INH SCH (09:02)
[2022-04-05] MEDS: Polyethylene Glycol 3350 17 GM PACKET PO SCH (09:06)
[2022-04-05] MEDS: HYDROcodone/ACETAMIN 5/325 mg TAB PO PRN (17:53)
[2022-04-05] MEDS: Senna TAB 8.6 mg TAB PO SCH (20:46)
[2022-04-05] MEDS ORDERED: Sodium Phosphate ADULT ENEMA 133 ML BTL PR PRN (20:47)
[2022-04-06] MEDS: Polyethylene Glycol 3350 17 GM PACKET PO SCH (09:53)
[2022-04-06] MEDS: Tiotropium Brom/Olodaterol MDI INH SCH (09:53)
[2022-04-06] MEDS: HYDROcodone/ACETAMIN 5/325 mg TAB PO PRN ×2 (09:54→13:47)
[2022-04-06] MEDS: Senna TAB 8.6 mg TAB PO SCH (20:09)
[2022-04-07] MEDS: Polyethylene Glycol 3350 17 GM PACKET PO SCH (07:35)
[2022-04-07] MEDS: Tiotropium Brom/Olodaterol MDI INH SCH (07:35)
[2022-04-07] MEDS: HYDROcodone/ACETAMIN 5/325 mg TAB PO PRN ×2 (07:36→16:34)
[2022-04-07] MEDS: Heparin 5000 UNITS/ML 1 mL VIAL SUBCUT SCH (20:53)
[2022-04-07] MEDS: Senna TAB 8.6 mg TAB PO SCH (20:56)
[2022-04-08] MEDS: HYDROcodone/ACETAMIN 5/325 mg TAB PO PRN ×2 (06:09→20:21)
[2022-04-08] MEDS: Aspirin EC 81 mg TAB.EC (enteric coated) PO SCH (07:41)
[2022-04-08] MEDS: Heparin 5000 UNITS/ML 1 mL VIAL SUBCUT SCH ×2 (07:43→20:22)
[2022-04-08] MEDS: Polyethylene Glycol 3350 17 GM PACKET PO SCH (07:43)
[2022-04-08] MEDS: Tiotropium Brom/Olodaterol MDI INH SCH (07:48)
[2022-04-08] MEDS: Senna TAB 8.6 mg TAB PO SCH (20:22)
[2022-04-09] MEDS: Aspirin EC 81 mg TAB.EC (enteric coated) PO SCH (09:26)
[2022-04-09] MEDS: Heparin 5000 UNITS/ML 1 mL VIAL SUBCUT SCH ×2 (09:27→20:45)
[2022-04-09] MEDS: Tiotropium Brom/Olodaterol MDI INH SCH (09:27)
[2022-04-09] MEDS: Polyethylene Glycol 3350 17 GM PACKET PO SCH (09:33)
[2022-04-09] MEDS: HYDROcodone/ACETAMIN 5/325 mg TAB PO PRN (13:50)
[2022-04-09] MEDS: Senna TAB 8.6 mg TAB PO SCH (19:01)
[2022-04-10] MEDS: HYDROcodone/ACETAMIN 5/325 mg TAB PO PRN (01:44)
[2022-04-10] MEDS: Aspirin EC 81 mg TAB.EC (enteric coated) PO SCH (09:02)
[2022-04-10] MEDS: Tiotropium Brom/Olodaterol MDI INH SCH (09:03)
[2022-04-10] MEDS: Polyethylene Glycol 3350 17 GM PACKET PO SCH ×2 (09:04→14:41)
[2022-04-10] MEDS: Heparin 5000 UNITS/ML 1 mL VIAL SUBCUT SCH ×2 (09:10→22:41)
[2022-04-10] MEDS ORDERED: Iohexol 350 (CONTRAST) 500 ML MDV IV ONE (21:53)
[2022-04-10] MEDS: Senna TAB 8.6 mg TAB PO SCH (22:47)
[2022-04-11] MEDS: Tiotropium Brom/Olodaterol MDI INH SCH (09:26)
[2022-04-11] MEDS: Polyethylene Glycol 3350 17 GM PACKET PO SCH (09:46)
[2022-04-11] MEDS: Aspirin EC 81 mg TAB.EC (enteric coated) PO SCH (09:48)
[2022-04-11] MEDS: Heparin 5000 UNITS/ML 1 mL VIAL SUBCUT SCH ×2 (09:50→21:43)
[2022-04-11] MEDS: Senna TAB 8.6 mg TAB PO SCH (21:43)
[2022-04-12 07:50] LABS: ABS Basophils 0.1 10^3/ul (0-0.2); ABS Eosinophils 0.1 10^3/ul (0-0.6); ABS Lymphocytes 1.8 10^3/ul (1.0-4.8); ABS Monocytes 0.8 10^3/ul (0-0.8); ABS Neutrophils 5.1 10^3/ul (1.5-7.7); Eosinophil % 1.5 %; Hematocrit 35 % (35-47); Hemoglobin 11.4 g/dL (12.0-16.0); Mean Corpuscular HGB Conc 33 g/dL (31-36); Mean Corpuscular Hemoglobin 33 pg (27-31); Mean Corpuscular Volume 99 fL (80-97); Mean Platelet Volume 7.7 fL (7.4-10.4); Platelet Count 404 10^3/uL (150-450); Red Blood Count 3.48 10^6 /uL (3.70-4.87); Red Cell Distribution Width 14 % (10-15); White Blood Count 7.9 10^3/uL (3.5-10.8)
[2022-04-12 08:37] LABS: Albumin 3.5 g/dL (3.2-5.2); Albumin/Globulin Ratio 1.5 (1-3); Calcium 9.4 mg/dL (8.6-10.3); Creatinine, Serum 0.44 mg/dL (0.51-0.95); Globulin 2.4 g/dL (2-4); Potassium 4.6 mmol/L (3.5-5.0); Total Bilirubin 0.4 mg/dL (0.2-1.0); Total Protein 5.9 g/dL (6.4-8.9); eGFR CKD-EPI 108.6 (>60)
[2022-04-12] MEDS: Tiotropium Brom/Olodaterol MDI INH SCH (08:54)
[2022-04-12] MEDS: Aspirin EC 81 mg TAB.EC (enteric coated) PO SCH (09:43)
[2022-04-12] MEDS: Heparin 5000 UNITS/ML 1 mL VIAL SUBCUT SCH ×3 (09:44→20:11)
[2022-04-12] MEDS: Polyethylene Glycol 3350 17 GM PACKET PO SCH (09:52)
[2022-04-12] MEDS: Senna TAB 8.6 mg TAB PO SCH (20:09)
[2022-04-12] MEDS: Calcium Carb (TUMS) 500 mg CHEW TAB PO PRN (22:11)
[2022-04-13] MEDS: Calcium Carb (TUMS) 500 mg CHEW TAB PO PRN ×2 (02:36→20:24)
[2022-04-13] MEDS: Aspirin EC 81 mg TAB.EC (enteric coated) PO SCH (08:21)
[2022-04-13] MEDS: Heparin 5000 UNITS/ML 1 mL VIAL SUBCUT SCH ×2 (08:23→20:20)
[2022-04-13] MEDS: Polyethylene Glycol 3350 17 GM PACKET PO SCH (08:24)
[2022-04-13] MEDS: Tiotropium Brom/Olodaterol MDI INH SCH (12:54)
[2022-04-13] MEDS: Senna TAB 8.6 mg TAB PO SCH (20:21)
[2022-04-14 06:51] VITALS: BP 121/71
[2022-04-14] MEDS: Tiotropium Brom/Olodaterol MDI INH SCH (08:28)
[2022-04-14] MEDS: Aspirin EC 81 mg TAB.EC (enteric coated) PO SCH (08:49)
[2022-04-14] MEDS: Heparin 5000 UNITS/ML 1 mL VIAL SUBCUT SCH (08:51)
[2022-04-14] MEDS: Polyethylene Glycol 3350 17 GM PACKET PO SCH (08:51)
[2022-04-14] MEDS: Calcium Carb (TUMS) 500 mg CHEW TAB PO PRN (10:23)
== END 2022-04-14 15:22 | disposition home or self-care (01) | DRG 40 ==
LOC: PMRU 14:01
PROVIDERS: ADMIT Physical Medicine & Rehabilitation; ATTEND Physical Medicine & Rehabilitation